=== PATIENT | male | born 1950 | race Asian ===

== ENCOUNTER 2019-06-10 08:34 | Emergency (ER) | payer OTHER ==
[~2019-06-10] VITALS: Ht 175.3 cm; Wt 72.6 kg
--- NOTE | 2019-06-10 08:35 | NUR ---
ED Nurse Note: patient brought to ED from home by [id number], report that he started having diarrhea for 3 weeks and rectal bleed about 1 week ago, reports bleeding got worse for the past few days. 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 patient is alert awake x4 breathing unlabored and even, speaking in full sentences. patient provided with hospital gown and on a threat monitoring analyst.
[2019-06-10 09:02] VITALS: BP 142/65
--- NOTE | 2019-06-10 09:10 | NUR ---
ED Nurse Note: patient has fentanly patch on the right upper arm, notified to Dr. Hilton at bedside. patient reports 8/10 pain at this time. patient reports the portacath on the right upper chest has not been accessed for 2 years and reports that he prefers IV line at this time.
[2019-06-10 09:30] LABS: ANION GAP 3 mmol/L (5-15); BLOOD UREA NITROGEN 21 mg/dL (7-18); CALCIUM 8.2 MG/DL (8.5-10.1); CARBON DIOXIDE 30 MMOL/L (21-32); CHLORIDE 96 MMOL/L (98-107); CREATININE 0.8 MG/DL (0.55-1.30); POTASSIUM 3.7 MMOL/L (3.5-5.1); SODIUM 129 MMOL/L (136-145)
[2019-06-10] MEDS ORDERED: Morphine Sulfate 4mg/ml Inj (IV USE ONLY) IVP ONE (09:30)
[2019-06-10 09:32] LABS: HEMOGLOBIN 9.8 G/DL (14.2-18.0); MEAN CORPUSCULAR VOLUME 97 FL (80-99); PLATELET COUNT 264 K/UL (150-450); RED CELL DISTRIBUTION WIDTH 12.1 % (11.6-14.8); WHITE BLOOD COUNT 8.2 K/UL (4.8-10.8)
[2019-06-10] MEDS ORDERED: Morphine Sulfate 4mg/ml Inj (IV USE ONLY) ONE (09:33)
[2019-06-10 09:35] LABS: ALANINE AMINOTRANSFERASE 19 U/L (12-78); ALBUMIN/GLOBULIN RATIO 0.2 (1.0-2.7); ALKALINE PHOSPHATASE 126 U/L (46-116); ASPARTATE AMINO TRANSFERASE 36 U/L (15-37); BILIRUBIN,TOTAL 0.2 MG/DL (0.2-1.0)
[2019-06-10 09:39] LABS: APPEARANCE,URINE CLOUDY; BILIRUBIN, URINE NEGATIVE (NEGATIVE); GLUCOSE, URINE (UA) NEGATIVE (NEGATIVE); KETONES,URINE NEGATIVE (NEGATIVE); LEUKOCYTE ESTERASE ,URINE 2+ (NEGATIVE); NITRITE,URINE POSITIVE (NEGATIVE); PH,URINE 8 (4.5-8.0); PROTEIN,URINE 4+ (NEGATIVE); UROBILINOGEN,URINE NORMAL MG/DL (0.0-1.0)
[2019-06-10 09:51] LABS: COLOR,URINE YELLOW
[2019-06-10] MEDS ORDERED: cefTRIAXone 1 GM in NS 55 ML IVPB ONE (10:45)
[2019-06-10 11:07] VITALS: BP 97/38
[2019-06-10 12:10] VITALS: BP 108/48
--- NOTE | 2019-06-10 12:26 | Emergency Room Report ---
History of Present Illness General Chief Complaint: General Complaint Source: Patient, EMS Present Illness HPI This patient has a history of metastatic head and neck cancer. Patient is sent to the emergency department by his oncologist. He has had generalized weakness , failure to thrive and poor oral intake. He also has had some blood in his stool. He has pain all over his body. He denies fever or chills. He denies nausea or vomiting. He denies chest pain or shortness of breath. He has no other complaints. Allergies: Coded Allergies: No Known Allergies (Unverified , 06/10/19) COVID-19 Screening Contact w/high risk pt: No Recent Travel to affected area: No Experienced COVID-19 symptoms?: No Patient History Past Medical History: see triage record, other - metastatic head and neck cancer. Social History: Denies: smoking, alcohol use, drug use Reviewed Nursing Documentation: PMH: Agreed; PSxH: Agreed Nursing Documentation-PMH Past Medical History: No History, Except For Hx Cancer: Yes - METASTATIC HEAD AND NECK CANCER TO SACRAL Review of Systems All Other Systems: negative except mentioned in HPI Physical Exam Vital Signs Date Time Temp Pulse Resp B/P (MAP) Pulse Ox O2 Delivery O2 Flow Rate FiO2 06/10/19 08:25 98.6 86 16 116/62 (80) 98 Room Air Sp02 EP Interpretation: reviewed, normal General Appearance: no apparent distress, alert, GCS 15, non-toxic Head: normocephalic, atraumatic Eyes: bilateral eye normal inspection, bilateral eye PERRL ENT: hearing grossly normal, normal pharynx, no angioedema, normal voice Neck: full range of motion, supple/symm/no masses Respiratory: chest non-tender, lungs clear, normal breath sounds, no respiratory distress, no retraction, no accessory muscle use, speaking full sentences Cardiovascular #1: regular rate, rhythm, no edema Gastrointestinal: normal bowel sounds, non tender, soft, non-distended, no guarding, no rebound Rectal: deferred Musculoskeletal: back normal, normal range of motion, calf tenderness, gait/ station normal, non-tender Neurologic: alert, motor strength/tone normal, oriented x3, sensory intact, responsive, speech normal Psychiatric: judgement/insight normal, memory normal, mood/affect normal, no suicidal/homicidal ideation Medical Decision Making Diagnostic Impression: Primary Impression: Pyelonephritis Additional Impressions: Failure to thrive Rectal bleeding Metastatic cancer ER Course This patient has pyelonephritis and failure to thrive. He is frail elderly male. He was given broad-spectrum antibiotics for his urinary tract infection. Given his age and deterioration, the patient will be admitted for further monitoring and treatment. The patient's insurance company requested his transfer to [facility]. The patient was accepted by hospitalist at [facility]. The patient is stable for transfer. Laboratory Tests Test 06/10/19 08:40 06/10/19 09:23 White Blood Count 8.2 K/UL (4.8-10.8) Red Blood Count 2.90 M/UL (4.70-6.10) L Hemoglobin 9.8 G/DL (14.2-18.0) L Hematocrit 28.0 % (42.0-52.0) L Mean Corpuscular Volume 97 FL (80-99) Mean Corpuscular Hemoglobin 33.7 PG (27.0-31.0) H Mean Corpuscular Hemoglobin Concent 34.8 G/DL (32.0-36.0) Red Cell Distribution Width 12.1 % (11.6-14.8) Platelet Count 264 K/UL (150-450) Mean Platelet Volume 5.4 FL (6.5-10.1) L Neutrophils (%) (Auto) % (45.0-75.0) Lymphocytes (%) (Auto) % (20.0-45.0) Monocytes (%) (Auto) % (1.0-10.0) Eosinophils (%) (Auto) % (0.0-3.0) Basophils (%) (Auto) % (0.0-2.0) Differential Total Cells Counted 100 Neutrophils % (Manual) 92 % (45-75) H Lymphocytes % (Manual) 3 % (20-45) L Monocytes % (Manual) 5 % (1-10) Eosinophils % (Manual) 0 % (0-3) Basophils % (Manual) 0 % (0-2) Band Neutrophils 0 % (0-8) Platelet Estimate Adequate Platelet Morphology Normal Hypochromasia 1+ Prothrombin Time 10.5 SEC (9.30-11.50) Prothrombin Time INR 1.0 (0.9-1.1) Activated Partial Thromboplast Time 32 SEC (23-33) Sodium Level 129 MMOL/L (136-145) L Potassium Level 3.7 MMOL/L (3.5-5.1) Chloride Level 96 MMOL/L (98-107) L Carbon Dioxide Level 30 MMOL/L (21-32) Anion Gap 3 mmol/L (5-15) L Blood Urea Nitrogen 21 mg/dL (7-18) H Creatinine 0.8 MG/DL (0.55-1.30) Estimated Glomerular Filtration Rate > 60 mL/min (>60) Glucose Level 87 MG/DL (74-106) Calcium Level 8.2 MG/DL (8.5-10.1) L Total Bilirubin 0.2 MG/DL (0.2-1.0) Aspartate Amino Transferase (AST) 36 U/L (15-37) Alanine Aminotransferase (ALT) 19 U/L (12-78) Alkaline Phosphatase 126 U/L (46-116) H Total Protein 6.7 G/DL (6.4-8.2) Albumin 1.0 G/DL (3.4-5.0) L Globulin 5.7 g/dL Albumin/Globulin Ratio 0.2 (1.0-2.7) L Urine Color Yellow Urine Appearance Cloudy Urine pH 8 (4.5-8.0) Urine Specific [place] 1.010 (1.005-1.035) Urine Protein 4+ (NEGATIVE) H Urine Glucose (UA) Negative (NEGATIVE) Urine Ketones Negative (NEGATIVE) Urine Blood 3+ (NEGATIVE) H Urine Nitrite Positive (NEGATIVE) H Urine Bilirubin Negative (NEGATIVE) Urine Urobilinogen Normal MG/DL (0.0-1.0) Urine Leukocyte Esterase 2+ (NEGATIVE) H Urine RBC 20-30 /HPF (0 - 0) H Urine WBC 15-20 /HPF (0 - 0) H Urine Squamous Epithelial Cells None /LPF (NONE/OCC) Urine Bacteria Many /HPF (NONE) H Last Vital Signs Date Time Temp Pulse Resp B/P (MAP) Pulse Ox O2 Delivery O2 Flow Rate FiO2 06/10/19 12:10 98.6 74 12 108/48 99 Room Air Status: improved Disposition: SHORT-TERM HOSP Condition: Stable Referrals: NON PHYSICIAN (PCP) Verenice Hilton DO Jun 10, 2019 12:26
--- NOTE | 2019-06-10 13:57 | NUR ---
ED Nurse Note: patient transferred to [facility] via [facility] with all of his belongings. report given to Bob MORRISON, endorsed all plan of care to Bob MORRISON.
[2019-06-10 13:58] VITALS: BP 115/72
[2019-06-10 13:59] VITALS: BP 115/72
== END 2019-06-10 14:00 | disposition short-term general hospital (02) ==
LOC: EDBD 08:34 → EMR 08:40
DX: N12 Tubulo-interstitial nephritis, not specified as acute or chronic (principal); R62.51 Failure to thrive (child); K62.5 Hemorrhage of anus and rectum; C79.51 Secondary malignant neoplasm of bone; R53.1 Weakness; Z85.89 Personal history of malignant neoplasm of other organs and systems
CPT/HCPCS: 36415; 80053; 81003; 85007; 85025; 85610; 85730; 86850; 86900; 86901; 87086; 87181; 96365; 96375; J0696; J2270; Z7502; 99285